=== PATIENT | male | born 1945 | race Caucasian/White ===

== ENCOUNTER 2019-12-31 08:08 | Emergency (ER) | payer OTHER ==
--- NOTE | 2019-12-31 08:32 | ED Physician Documentation ---
PD HPI SKIN - Stated complaint Stated Complaint: BILAT LEG PX - Chief complaint Chief Complaint: Ext Problem - History obtained from History obtained from: Patient - History of Present Illness Timing - onset: How many weeks ago (has had some superficial sores lower legs with spread to larger area gradually. Has blistering areas with clear yellow fluid. No purulence per se. Red with swelling bilaterallly.) Timing - duration: Weeks Timing - details: Gradual onset Location: RLE (on medial area mid lower leg.), LLE (mostly) Quality / character: Painful, Burning, Discolored (red), Vesicular, Swelling Associated symptoms: No: Fever, Myalgias, N/V/D Contributing factors: No: Recent illness Similar symptoms before: Diagnosis (skin cellulitis/infection 2 years ago and was treated with abx/topical/wound care.) Review of Systems Constitutional: denies: Fever, Chills Nose: denies: Rhinorrhea / runny nose, Congestion Throat: denies: Sore throat Cardiac: denies: Chest pain / pressure Respiratory: denies: Cough GI: denies: Nausea, Vomiting, Diarrhea PD PAST MEDICAL HISTORY - Past Medical History Cardiovascular: None, Peripheral Vascular Disease Neuro: None Endocrine/Autoimmune: None - Present Medications Home Medications: Ambulatory Orders Medication Instructions Recorded Confirmed Chlorhexidine Gluconate [Hibiclens] 15 ml TP DAILY #236 ml 12/31/19 Doxycycline Monohydrate 100 mg PO BID #20 tablet 12/31/19 Mupirocin 1 applic TP TID #15 g 12/31/19 - Allergies Allergies/Adverse Reactions: Allergies Allergy/AdvReac Type Severity Reaction Status Date / Time No Known Drug Allergies Allergy Verified 12/31/19 08:12 PD ED PE NORMAL - Vitals Vital signs reviewed: Yes - General General: Alert and oriented X 3, No acute distress, Well developed/nourished - Cardiac Cardiac: RRR, No murmur - Respiratory Respiratory: Clear bilaterally - Abdomen Abdomen: Soft, Non tender - Derm Derm: Normal color, Warm and dry - Extremities Extremities: Other (minimal edema in both legs. Palpable DP pulses though foot/hurts. mildly delayed toes refill of systom. multiple skin sores not into fatty tissue. Weeping clear yellow fluid. 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 ), considered differential (has redness with several blistering sores on left leg primarily. Couple medial right leg. Culture obtained of fresh yellow fluid from left leg sores. ), d/w patient ED course: likely staph bullous impetigo. No deep ulcerations. Dusky feet but has cap refill and palpable DP pulses. Departure - Departure Disposition: 01 Home, Self Care Clinical Impression: Blister of lower extremity with infection Qualifiers: Encounter type: initial encounter Laterality: left Qualified Code(s): S80.822A - Blister (nonthermal), left lower leg, initial encounter Condition: Stable Record reviewed to determine appropriate education?: Yes Instructions: ED Staph Infec Abx Tx Only Prescriptions: Doxycycline Monohydrate 100 mg PO BID #20 tablet Chlorhexidine Gluconate [Hibiclens] 15 ml TP DAILY #236 ml Mupirocin 1 applic TP TID #15 g Comments: Cleanse the wounds with chlorhexidine antiseptic diluted with water once or twice daily. Otherwise can clean with soap and water other times in the day. Apply the mupirocin antibiotic ointment twice daily to the major sores. Doxycycline oral antibiotic twice daily for 7 to 10 days. Tylenol if needed for pains. Recheck if not improving well over the next several days. Follow-up with your primary care regarding further assessment and also potential setting up with the wound care clinic. Discharge Date/Time: 12/31/19 09:56
[2019-12-31] MEDS ORDERED: DOXYCYCLINE 100 MG TABLET PO STA (09:03)
[2019-12-31] MEDS ORDERED: MUPIROCIN 2% OINT 1 GM TOP STA ×2 (09:03→09:18)
[2019-12-31 09:57] VITALS: BP 151/106
== END 2019-12-31 09:56 | disposition home or self-care (01) ==
LOC: ED 08:08
DX: S80.822A Blister (nonthermal), left lower leg, initial encounter (principal); S80.821A Blister (nonthermal), right lower leg, initial encounter; B96.89 Other specified bacterial agents as the cause of diseases classified elsewhere; X58.XXXA Exposure to other specified factors, initial encounter; I73.9 Peripheral vascular disease, unspecified; L98.9 Disorder of the skin and subcutaneous tissue, unspecified
CPT/HCPCS: 87070; 87205; 99283; 99284; A9270; 87181